=== PATIENT | male | born 1980 | race Caucasian/White ===

== ENCOUNTER 2021-10-02 16:59 | Emergency (ER) | payer SELFPAY ==
[2021-10-02] MEDS ORDERED: Lidocaine 1% with EPINEPHrine 1:100,000 10 ML MDV INJECT ONE (17:05)
[2021-10-02] MEDS ORDERED: Diphtheria,Pertussis(Acell),Tetanus Vaccine 0.5 ML Syringe IM ONE (17:06)
== END 2021-10-02 18:35 | disposition home or self-care (01) ==
LOC: MW.ED 16:59
DX: S01.01XA Laceration without foreign body of scalp, initial encounter (principal); Z88.8 Allergy status to other drugs, medicaments and biological substances; Z23 Encounter for immunization; W26.8XXA Contact with other sharp object(s), not elsewhere classified, initial encounter
CPT/HCPCS: 12002; 70450; 70450-26; 72125; 72125-26; 90471; 90715; 99283-25

== ENCOUNTER 2023-08-17 20:54 | Observation (INO) | payer BC ==
[2023-08-17 21:11] LABS: BASOPHILS ABSOLUTE AUTO 0.11 K/uL (0.00-0.20); BASOPHILS PERCENT AUTO 1.6 % (0.0-1.0); EOSINOPHILS ABSOLUTE AUTO 0.22 K/uL (0.00-0.45); EOSINOPHILS PERCENT AUTO 3.3 % (0.0-6.0); HEMATOCRIT 39.1 % (42.0-52.0); HEMOGLOBIN 13.7 g/dL (14.0-18.0); IMMATURE GRAN ABSOLUTE AUTO 0.03 K/uL (0.00-0.05); IMMATURE GRAN PERCENT AUTO 0.4 % (0.0-0.4); LYMPHOCYTES ABSOLUTE AUTO 1.57 K/uL (1.00-4.80); LYMPHOCYTES PERCENT AUTO 23.2 % (24.0-44.0); MEAN CORPUSCULAR VOLUME 91.4 fL (83.0-99.0); MONOCYTES ABSOLUTE AUTO 0.91 K/uL (0.00-0.80); MONOCYTES PERCENT AUTO 13.5 % (0.0-8.0); NEUTROPHILS ABSOLUTE AUTO 3.92 K/uL (1.80-7.70); PLATELET COUNT,PLT 449 K/uL (150-400); RED BLOOD CELL COUNT 4.28 M/uL (4.52-5.90); WHITE BLOOD CELL COUNT,WBC 6.76 K/uL (3.9-11.3)
[2023-08-17] MEDS: Sodium Chloride 0.9% 1,000 ML IV STA (21:12)
[2023-08-17] MEDS: Sodium Chloride 0.9% 2.5 ML Syringe FLUSH PRN (21:12)
[2023-08-17] MEDS: Sodium Chloride 0.9% 10 ML Syringe FLUSH PRN (21:12)
[2023-08-17 21:37] LABS: D-DIMER QUANTITATIVE 0.2 mg/L FEU (0.00-0.50); INR 0.94 (0.86-1.11)
[2023-08-17 21:43] LABS: A/G RATIO 1.1 (0.9-1.6); ALBUMIN 3.9 g/dL (3.4-5.0); CALCIUM 9.4 mg/dL (8.5-10.1); CARBON DIOXIDE,CO2 24.2 mmol/L (21.0-32.0); CREATININE 1.5 mg/dL (0.8-1.3); EST CRCL DRUG DOSING (CG) 68.98 mL/min; POTASSIUM,K 3.7 mmol/L (3.5-5.1); PROTEIN TOTAL,TP 7.5 g/dL (6.4-8.2)
[2023-08-17] MEDS: Metoprolol Tartrate 5 MG in Sodium Chloride 0.9% 50 ML IV ONE (22:27)
[2023-08-17] MEDS: Metoprolol Tartrate 5 MG/5 ML SDV IVPUSH STA (22:29)
[2023-08-17 23:17] LABS: MAGNESIUM 1.8 mg/dL (1.8-2.4)
[2023-08-18] MEDS: Metoprolol Succinate 25 MG Tab.ER PO ONE (00:09)
[2023-08-18] MEDS: Apixaban 5 MG Tab PO ONE (01:54)
[2023-08-18 06:10] LABS: HEMOGLOBIN 13.3 g/dL (14.0-18.0); MEAN CORPUSCULAR HGB CONC 34.1 g/dL (32.0-36.0); MEAN PLATELET VOLUME 9.1 fL (9.4-12.4); PLATELET COUNT,PLT 412 K/uL (150-400); RED BLOOD CELL COUNT 4.15 M/uL (4.52-5.90); WHITE BLOOD CELL COUNT,WBC 6.94 K/uL (3.9-11.3)
[2023-08-18 06:28] LABS: BLOOD UREA NITROGEN,BUN 8 mg/dL (7.0-18.0); CALCIUM 8.4 mg/dL (8.5-10.1); CARBON DIOXIDE,CO2 25.7 mmol/L (21.0-32.0); CHLORIDE,CL 105 mmol/L (98-107); CREATININE 1.3 mg/dL (0.8-1.3); ESTIMATED GFR 69 mL/min (>60); GLUCOSE RANDOM 100 mg/dL (74-106); POTASSIUM,K 4.1 mmol/L (3.5-5.1); SODIUM,NA 141 mmol/L (136-148)
[2023-08-18] MEDS: Metoprolol Tartrate 25 MG Tab PO SCH (08:49)
[2023-08-18] MEDS ORDERED: Apixaban 5 MG Tab PO SCH (21:00)
== END 2023-08-18 11:10 | disposition home or self-care (01) ==
LOC: MW.ED 20:54 → MW.ICU 08-18 00:44
PROVIDERS: ADMIT Internal Medicine; ATTEND Internal Medicine
DX: I48.91 Unspecified atrial fibrillation (principal); F17.290 Nicotine dependence, other tobacco product, uncomplicated; Z79.01 Long term (current) use of anticoagulants; Z79.899 Other long term (current) drug therapy; Z88.8 Allergy status to other drugs, medicaments and biological substances
CPT/HCPCS: 36415; 71045; 80048; 80053; 83735; 84484; 85025; 85027; 85379; 85610; 93005; 93306; 96374; 99285; A9270; J3490; J7030; 93010; 99235; 99284; G0378

== ENCOUNTER 2024-06-13 11:24 | Inpatient (IN) | payer BC ==
[2024-06-13 12:15] LABS: BASOPHILS ABSOLUTE AUTO 0.05 K/uL (0.00-0.20); BASOPHILS PERCENT AUTO 0.4 % (0.0-1.0); EOSINOPHILS ABSOLUTE AUTO 0.19 K/uL (0.00-0.45); EOSINOPHILS PERCENT AUTO 1.6 % (0.0-6.0); HEMATOCRIT 41.9 % (42.0-52.0); HEMOGLOBIN 14.4 g/dL (14.0-18.0); IMMATURE GRAN ABSOLUTE AUTO 0.06 K/uL (0.00-0.05); IMMATURE GRAN PERCENT AUTO 0.5 % (0.0-0.4); LYMPHOCYTES ABSOLUTE AUTO 0.71 K/uL (1.00-4.80); LYMPHOCYTES PERCENT AUTO 5.9 % (24.0-44.0); MEAN CORPUSCULAR HEMOGLOBIN 31.2 pg (28.0-32.0); MEAN CORPUSCULAR HGB CONC 34.4 g/dL (32.0-36.0); MEAN CORPUSCULAR VOLUME 90.9 fL (83.0-99.0); MONOCYTES ABSOLUTE AUTO 1.25 K/uL (0.00-0.80); MONOCYTES PERCENT AUTO 10.3 % (0.0-8.0); NEUTROPHILS ABSOLUTE AUTO 9.86 K/uL (1.80-7.70); NEUTROPHILS PERCENT AUTO 81.3 % (41.0-71.0); PLATELET COUNT,PLT 362 K/uL (150-400); RED BLOOD CELL COUNT 4.61 M/uL (4.52-5.90); WHITE BLOOD CELL COUNT,WBC 12.12 K/uL (3.9-11.3)
[2024-06-13 12:36] LABS: A/G RATIO 0.8 (0.9-1.6); ALBUMIN 3.3 g/dL (3.4-5.0); BILIRUBIN TOTAL 1.5 mg/dL (0.2-1.0); CARBON DIOXIDE,CO2 27.2 mmol/L (21.0-32.0); CREATININE 1.2 mg/dL (0.8-1.3); EST CRCL DRUG DOSING (CG) 85.32 mL/min; POTASSIUM,K 3.7 mmol/L (3.5-5.1); PROTEIN TOTAL,TP 7.6 g/dL (6.4-8.2)
[2024-06-13] MEDS ORDERED: Sodium Chloride 0.9% 2.5 ML Syringe FLUSH PRN (12:56)
[2024-06-13] MEDS ORDERED: Sodium Chloride 0.9% 10 ML Syringe FLUSH PRN (12:56)
[2024-06-13] MEDS: Sodium Chloride 0.9% 1,000 ML IV ONE ×2 (13:10→16:03)
[2024-06-13] MEDS: Ondansetron 4 MG/2 ML SDV IVPUSH ONE (13:10)
[2024-06-13] MEDS: fentaNYL 50 MCG/ML SDV IVPUSH ONE ×2 (13:23→16:04)
[2024-06-13 13:24] LABS: COLOR,URINE ORANGE; GLUCOSE,URINE NEGATIVE (NEGATIVE); KETONES,URINE TRACE mg/dL (NEGATIVE); LEUKOCYTE ESTERASE,URINE NEGATIVE (NEGATIVE); NITRITE,URINE POSITIVE (NEGATIVE); OCCULT BLOOD,URINE LARGE (NEGATIVE); PROTEIN,URINE >=300 mg/dL (NEGATIVE)
[2024-06-13 13:25] LABS: APPEARANCE,URINE SLT CLOUDY; BILIRUBIN,URINE MODERATE (NEGATIVE)
[2024-06-13 13:44] LABS: BACTERIA,URINE 1+ (NEGATIVE); EPITHELIAL CELLS,URINE RARE (NONE-FEW); MUCUS,URINE LIGHT (NONE-MOD)
[2024-06-13] MEDS: Iopamidol 755 MG/ML 500 ML Multipack Bottle IVPUSH STA (14:05)
[2024-06-13] MEDS: Morphine 4 MG/ML Syringe IVPUSH ONE (14:31)
[2024-06-13] MEDS: Morphine 4 MG/ML Syringe IM ONE (14:32)
[2024-06-13] MEDS ORDERED: Ondansetron 4 MG/2 ML SDV IVPUSH PRN (15:27)
[2024-06-13] MEDS ORDERED: Morphine 2 MG/ML SYRINGE IVPUSH PRN (15:27)
[2024-06-13] MEDS: cefTRIAXone 1 GM in Sodium Chloride 0.9% 50 ML IV SCH (16:03)
[2024-06-13] MEDS: Pantoprazole 40 MG in Sodium Chloride 0.9% 10 ML IVPUSH SCH (16:04)
[2024-06-13] MEDS: Thiamine 200 MG/2 ML MDV IVPUSH SCH (17:23)
[2024-06-13] MEDS: Folic Acid 1 MG/0.2 ML UD Syringe IV SCH (17:23)
[2024-06-13] MEDS: Sodium Chloride 0.9% 1,000 ML IV SCH (18:49)
[2024-06-13] MEDS: fentaNYL 50 MCG/ML SDV IVPUSH PRN (20:56)
[2024-06-14 05:57] LABS: BASOPHILS ABSOLUTE AUTO 0.05 K/uL (0.00-0.20); BASOPHILS PERCENT AUTO 0.5 % (0.0-1.0); EOSINOPHILS ABSOLUTE AUTO 0.24 K/uL (0.00-0.45); EOSINOPHILS PERCENT AUTO 2.4 % (0.0-6.0); HEMOGLOBIN 12.1 g/dL (14.0-18.0); IMMATURE GRAN ABSOLUTE AUTO 0.06 K/uL (0.00-0.05); IMMATURE GRAN PERCENT AUTO 0.6 % (0.0-0.4); LYMPHOCYTES ABSOLUTE AUTO 0.58 K/uL (1.00-4.80); LYMPHOCYTES PERCENT AUTO 5.9 % (24.0-44.0); MEAN CORPUSCULAR HEMOGLOBIN 31.3 pg (28.0-32.0); MEAN CORPUSCULAR HGB CONC 33.6 g/dL (32.0-36.0); MEAN CORPUSCULAR VOLUME 93.3 fL (83.0-99.0); MEAN PLATELET VOLUME 9.2 fL (9.4-12.4); MONOCYTES ABSOLUTE AUTO 1.19 K/uL (0.00-0.80); NEUTROPHILS ABSOLUTE AUTO 7.77 K/uL (1.80-7.70); NEUTROPHILS PERCENT AUTO 78.6 % (41.0-71.0); PLATELET COUNT,PLT 397 K/uL (150-400); RED BLOOD CELL COUNT 3.86 M/uL (4.52-5.90); WHITE BLOOD CELL COUNT,WBC 9.89 K/uL (3.9-11.3)
[2024-06-14 06:23] LABS: ALBUMIN 2.6 g/dL (3.4-5.0); BILIRUBIN TOTAL 0.8 mg/dL (0.2-1.0); CARBON DIOXIDE,CO2 26.2 mmol/L (21.0-32.0); CREATININE 1.2 mg/dL (0.8-1.3); EST CRCL DRUG DOSING (CG) 85.32 mL/min; MAGNESIUM 2.6 mg/dL (1.8-2.4); PHOSPHORUS 2.8 mg/dL (2.6-4.7); POTASSIUM,K 3.8 mmol/L (3.5-5.1); PROTEIN TOTAL,TP 6.6 g/dL (6.4-8.2)
[2024-06-14 06:25] LABS: A/G RATIO 0.7 (0.9-1.6)
[2024-06-14] MEDS ORDERED: Sodium Chloride 0.9% 10 ML Syringe FLUSH PRN (08:04)
[2024-06-14] MEDS ORDERED: Sodium Chloride 0.9% 2.5 ML Syringe FLUSH PRN (08:04)
[2024-06-15 05:25] LABS: BASOPHILS ABSOLUTE AUTO 0.06 K/uL (0.00-0.20); BASOPHILS PERCENT AUTO 0.6 % (0.0-1.0); EOSINOPHILS ABSOLUTE AUTO 0.28 K/uL (0.00-0.45); EOSINOPHILS PERCENT AUTO 2.9 % (0.0-6.0); HEMATOCRIT 33.5 % (42.0-52.0); HEMOGLOBIN 11.2 g/dL (14.0-18.0); IMMATURE GRAN ABSOLUTE AUTO 0.06 K/uL (0.00-0.05); IMMATURE GRAN PERCENT AUTO 0.6 % (0.0-0.4); LYMPHOCYTES ABSOLUTE AUTO 0.56 K/uL (1.00-4.80); LYMPHOCYTES PERCENT AUTO 5.8 % (24.0-44.0); MEAN CORPUSCULAR HEMOGLOBIN 31.1 pg (28.0-32.0); MEAN CORPUSCULAR HGB CONC 33.4 g/dL (32.0-36.0); MEAN CORPUSCULAR VOLUME 93.1 fL (83.0-99.0); MEAN PLATELET VOLUME 9.1 fL (9.4-12.4); MONOCYTES ABSOLUTE AUTO 1.21 K/uL (0.00-0.80); MONOCYTES PERCENT AUTO 12.4 % (0.0-8.0); NEUTROPHILS ABSOLUTE AUTO 7.55 K/uL (1.80-7.70); NEUTROPHILS PERCENT AUTO 77.7 % (41.0-71.0); PLATELET COUNT,PLT 419 K/uL (150-400); WHITE BLOOD CELL COUNT,WBC 9.72 K/uL (3.9-11.3)
[2024-06-15 05:54] LABS: A/G RATIO 0.6 (0.9-1.6); ALBUMIN 2.3 g/dL (3.4-5.0); BILIRUBIN TOTAL 0.4 mg/dL (0.2-1.0); CARBON DIOXIDE,CO2 25.2 mmol/L (21.0-32.0); EST CRCL DRUG DOSING (CG) 102.39 mL/min; POTASSIUM,K 3.5 mmol/L (3.5-5.1); PROTEIN TOTAL,TP 5.9 g/dL (6.4-8.2)
[2024-06-15] MEDS ORDERED: dexmedeTOMIDine HCl 200 MCG/2 ML SDV ONE (10:46)
[2024-06-15] MEDS ORDERED: fentaNYL 100 MCG/2 ML SDV ONE (10:46)
[2024-06-15] MEDS ORDERED: Propofol 200 MG/20 ML SDV ONE ×2 (10:46→13:17)
[2024-06-15] MEDS ORDERED: Rocuronium Bromide 50 MG/5 ML Syringe ONE ×2 (10:54→12:31)
[2024-06-15] MEDS ORDERED: Bupivacaine 0.5% 30 ML SDV ONE (10:57)
[2024-06-15] MEDS ORDERED: Bupivacaine 0.25% 30 ML SDV ONE (10:58)
[2024-06-15] MEDS ORDERED: Ropivacaine 0.5% 5 MG/ML 30 ML SDV ONE (10:58)
[2024-06-15] MEDS ORDERED: Lidocaine 2% 11 ML Jelly Filled Syringe ONE ×2 (11:47→12:37)
[2024-06-15] MEDS ORDERED: ceFAZolin 2 GM Vial ONE (12:02)
[2024-06-15] MEDS ORDERED: Morphine 10 MG/ML SDV ONE (12:03)
[2024-06-15] MEDS ORDERED: Sugammadex Sodium 200 MG/2 ML VIAL IV ONE (12:51)
[2024-06-15] MEDS ORDERED: Ketorolac 30 MG/ML SDV ONE (13:09)
[2024-06-15] MEDS ORDERED: Morphine 2 MG/ML SYRINGE IVPUSH PRN (13:51)
[2024-06-15] MEDS ORDERED: Naloxone 0.4 MG/ML SDV IVPUSH PRN (13:51)
[2024-06-15] MEDS ORDERED: Ondansetron 4 MG/2 ML SDV IVPUSH PRN (13:51)
[2024-06-15] MEDS ORDERED: fentaNYL 50 MCG/ML SDV IVPUSH PRN (13:51)
[2024-06-15] MEDS ORDERED: Albuterol 0.083% 2.5 MG/3 ML Neb Soln NEB PRN (13:51)
[2024-06-15] MEDS ORDERED: Phenylephrine HCl In 0.9% NaCl 1 MG/10 ML Syringe IVPUSH PRN (13:51)
[2024-06-15] MEDS ORDERED: HYDROmorphone 1 MG/ML Syringe IVPUSH PRN (13:51)
[2024-06-15] MEDS ORDERED: Metoclopramide 10 MG/2 ML SDV IVPUSH PRN (13:51)
== END 2024-06-15 20:45 | disposition home or self-care (01) | DRG 263 ==
LOC: MW.ED 11:24 → MW.MS 15:27
PROVIDERS: ADMIT Internal Medicine; ATTEND Internal Medicine
PROC: 0FT44ZZ Resection of Gallbladder, Percutaneous Endoscopic Approach (ICD-10-PCS; principal; 2024-06-13)
PROC: BF52200 Other Imaging of Gallbladder using Fluorescing Agent, Indocyanine Green Dye, Intraoperative (ICD-10-PCS; 2024-06-13)
DX: K85.20 Alcohol induced acute pancreatitis without necrosis or infection (principal); Y90.1 Blood alcohol level of 20-39 mg/100 ml; F15.90 Other stimulant use, unspecified, uncomplicated; I48.91 Unspecified atrial fibrillation; K80.20 Calculus of gallbladder without cholecystitis without obstruction; Z88.8 Allergy status to other drugs, medicaments and biological substances; Z98.890 Other specified postprocedural states; Z87.891 Personal history of nicotine dependence; N39.0 Urinary tract infection, site not specified
CPT/HCPCS: 36415; 74177; 74177-26; 74181; 74181-26; 76705; 76705-26; 80053; 80307; 81001; 83690; 83735; 84100; 85025; 87086; 93005; A9270-GY; J0665; J0690; J0696; J1885; J2272; J2405; J2470; J2704; J2795; J3010; J3411; J3490; J7030; Q9967

== ENCOUNTER 2024-12-24 10:38 | Inpatient (IN) | payer BC ==
[2024-12-24] MEDS ORDERED: Sodium Chloride 0.9% 2.5 ML Syringe FLUSH PRN ×2 (10:53→12:37)
[2024-12-24] MEDS ORDERED: Sodium Chloride 0.9% 10 ML Syringe FLUSH PRN ×2 (10:53→12:37)
[2024-12-24 11:07] LABS: BASOPHILS ABSOLUTE AUTO 0.05 K/uL (0.00-0.20); BASOPHILS PERCENT AUTO 0.5 % (0.0-1.0); EOSINOPHILS ABSOLUTE AUTO 0.24 K/uL (0.00-0.45); EOSINOPHILS PERCENT AUTO 2.6 % (0.0-6.0); IMMATURE GRAN ABSOLUTE AUTO 0.04 K/uL (0.00-0.05); IMMATURE GRAN PERCENT AUTO 0.4 % (0.0-0.4); LYMPHOCYTES ABSOLUTE AUTO 0.99 K/uL (1.00-4.80); LYMPHOCYTES PERCENT AUTO 10.6 % (24.0-44.0); MEAN PLATELET VOLUME 8.9 fL (9.4-12.4); MONOCYTES ABSOLUTE AUTO 0.87 K/uL (0.00-0.80); MONOCYTES PERCENT AUTO 9.3 % (0.0-8.0); NEUTROPHILS ABSOLUTE AUTO 7.14 K/uL (1.80-7.70); NEUTROPHILS PERCENT AUTO 76.6 % (41.0-71.0); NRBC ABSOLUTE 0.00 K/uL (0.00-0.02); NRBC PERCENT 0.0 /100WBC (0.0-0.2); PLATELET COUNT,PLT 430 K/uL (150-400); RED BLOOD CELL COUNT 4.47 M/uL (4.52-5.90); WHITE BLOOD CELL COUNT,WBC 9.33 K/uL (3.9-11.3)
[2024-12-24] MEDS: Ketorolac 30 MG/ML SDV IVPUSH ONE (11:08)
[2024-12-24] MEDS: Ondansetron 4 MG/2 ML SDV IVPUSH ONE (11:08)
[2024-12-24 11:44] LABS: A/G RATIO 1.1 (0.9-1.6); ALANINE AMINOTRANSFERASE,ALT 31.0 IU/L (14-63); ASPARTATE AMNIOTRANSFERASE,AST 25.0 IU/L (15-37); BILIRUBIN TOTAL 0.8 mg/dL (0.2-1.0); BLOOD UREA NITROGEN,BUN 10.0 mg/dL (7.0-18.0); CARBON DIOXIDE,CO2 27.0 mmol/L (21.0-32.0); CHLORIDE,CL 101.0 mmol/L (98-107); CREATININE 1.2 mg/dL (0.8-1.3); EST CRCL DRUG DOSING (CG) 85.32 mL/min; GLUCOSE RANDOM 115.0 mg/dL (74-106); POTASSIUM,K 3.8 mmol/L (3.5-5.1); PROTEIN TOTAL,TP 7.4 g/dL (6.4-8.2); SODIUM,NA 139.0 mmol/L (136-148)
[2024-12-24 11:46] LABS: ESTIMATED GFR 76.0 mL/min (>60)
[2024-12-24] MEDS ORDERED: Ondansetron 4 MG/2 ML SDV IVPUSH PRN (12:37)
[2024-12-24] MEDS ORDERED: LORazepam 2 MG/ML SDV IVPUSH PRN (12:41)
[2024-12-24] MEDS: Pantoprazole 80 MG in Sodium Chloride 0.9% 20 ML IVPUSH ONE (12:42)
[2024-12-24] MEDS: Thiamine 200 MG/2 ML MDV IVPUSH SCH (13:35)
[2024-12-24] MEDS: Folic Acid 1 MG/0.2 ML UD Syringe SUBCUT SCH (13:35)
[2024-12-24 20:58] LABS: APPEARANCE,URINE CLEAR; GLUCOSE,URINE NEGATIVE (NEGATIVE); OCCULT BLOOD,URINE MODERATE (NEGATIVE)
[2024-12-24 21:05] LABS: EPITHELIAL CELLS,URINE OCCASIONAL (NONE-FEW)
[2024-12-25 05:36] LABS: BASOPHILS ABSOLUTE AUTO 0.04 K/uL (0.00-0.20); BASOPHILS PERCENT AUTO 0.5 % (0.0-1.0); EOSINOPHILS ABSOLUTE AUTO 0.18 K/uL (0.00-0.45); EOSINOPHILS PERCENT AUTO 2.1 % (0.0-6.0); IMMATURE GRAN ABSOLUTE AUTO 0.03 K/uL (0.00-0.05); IMMATURE GRAN PERCENT AUTO 0.3 % (0.0-0.4); LYMPHOCYTES ABSOLUTE AUTO 0.68 K/uL (1.00-4.80); LYMPHOCYTES PERCENT AUTO 7.9 % (24.0-44.0); MEAN PLATELET VOLUME 9.1 fL (9.4-12.4); MONOCYTES ABSOLUTE AUTO 0.97 K/uL (0.00-0.80); MONOCYTES PERCENT AUTO 11.2 % (0.0-8.0); NEUTROPHILS ABSOLUTE AUTO 6.75 K/uL (1.80-7.70); NEUTROPHILS PERCENT AUTO 78.0 % (41.0-71.0); NRBC ABSOLUTE 0.00 K/uL (0.00-0.02); NRBC PERCENT 0.0 /100WBC (0.0-0.2); PLATELET COUNT,PLT 404 K/uL (150-400); RED BLOOD CELL COUNT 4.05 M/uL (4.52-5.90); WHITE BLOOD CELL COUNT,WBC 8.65 K/uL (3.9-11.3)
[2024-12-25 06:10] LABS: A/G RATIO 1.0 (0.9-1.6); ALANINE AMINOTRANSFERASE,ALT 19.0 IU/L (14-63); ASPARTATE AMNIOTRANSFERASE,AST 15.0 IU/L (15-37); BILIRUBIN TOTAL 0.8 mg/dL (0.2-1.0); BLOOD UREA NITROGEN,BUN 5.0 mg/dL (7.0-18.0); CARBON DIOXIDE,CO2 27.2 mmol/L (21.0-32.0); CHLORIDE,CL 105.0 mmol/L (98-107); CREATININE 1.1 mg/dL (0.8-1.3); EST CRCL DRUG DOSING (CG) 93.08 mL/min; GLUCOSE RANDOM 114.0 mg/dL (74-106); PHOSPHORUS 3.0 mg/dL (2.6-4.7); POTASSIUM,K 3.8 mmol/L (3.5-5.1); PROTEIN TOTAL,TP 6.1 g/dL (6.4-8.2); SODIUM,NA 140.0 mmol/L (136-148)
[2024-12-25 06:46] LABS: ESTIMATED GFR 84.0 mL/min (>60)
[2024-12-25] MEDS: Magnesium Sulfate 2 GM/50 mL 2 GM in Premix Bag 1 BAG IV ONE (09:23)
[2024-12-26 06:03] LABS: BASOPHILS ABSOLUTE AUTO 0.04 K/uL (0.00-0.20); BASOPHILS PERCENT AUTO 0.5 % (0.0-1.0); EOSINOPHILS ABSOLUTE AUTO 0.27 K/uL (0.00-0.45); EOSINOPHILS PERCENT AUTO 3.1 % (0.0-6.0); IMMATURE GRAN ABSOLUTE AUTO 0.04 K/uL (0.00-0.05); IMMATURE GRAN PERCENT AUTO 0.5 % (0.0-0.4); LYMPHOCYTES ABSOLUTE AUTO 1.07 K/uL (1.00-4.80); LYMPHOCYTES PERCENT AUTO 12.3 % (24.0-44.0); MEAN PLATELET VOLUME 9.0 fL (9.4-12.4); MONOCYTES ABSOLUTE AUTO 1.31 K/uL (0.00-0.80); MONOCYTES PERCENT AUTO 15.1 % (0.0-8.0); NEUTROPHILS ABSOLUTE AUTO 5.94 K/uL (1.80-7.70); NEUTROPHILS PERCENT AUTO 68.5 % (41.0-71.0); NRBC ABSOLUTE 0.00 K/uL (0.00-0.02); NRBC PERCENT 0.0 /100WBC (0.0-0.2); PLATELET COUNT,PLT 353 K/uL (150-400); RED BLOOD CELL COUNT 3.41 M/uL (4.52-5.90); WHITE BLOOD CELL COUNT,WBC 8.67 K/uL (3.9-11.3)
[2024-12-26 07:11] LABS: A/G RATIO 0.8 (0.9-1.6); ALANINE AMINOTRANSFERASE,ALT 17.0 IU/L (14-63); ASPARTATE AMNIOTRANSFERASE,AST 12.0 IU/L (15-37); BILIRUBIN TOTAL 0.8 mg/dL (0.2-1.0); BLOOD UREA NITROGEN,BUN 5.0 mg/dL (7.0-18.0); CARBON DIOXIDE,CO2 25.5 mmol/L (21.0-32.0); CHLORIDE,CL 104.0 mmol/L (98-107); CREATININE 1.1 mg/dL (0.8-1.3); EST CRCL DRUG DOSING (CG) 93.08 mL/min; GLUCOSE RANDOM 97.0 mg/dL (74-106); PHOSPHORUS 3.1 mg/dL (2.6-4.7); POTASSIUM,K 3.6 mmol/L (3.5-5.1); PROTEIN TOTAL,TP 6.0 g/dL (6.4-8.2); SODIUM,NA 138.0 mmol/L (136-148)
[2024-12-26 07:14] LABS: ESTIMATED GFR 84.0 mL/min (>60)
== END 2024-12-26 12:50 | disposition home or self-care (01) | DRG 282 ==
LOC: MW.ED 10:38 → MW.MS 13:56
PROVIDERS: ADMIT Internal Medicine; ATTEND Internal Medicine
DX: K85.20 Alcohol induced acute pancreatitis without necrosis or infection (principal); I48.91 Unspecified atrial fibrillation; E86.0 Dehydration; F10.10 Alcohol abuse, uncomplicated; Z88.8 Allergy status to other drugs, medicaments and biological substances; Z98.890 Other specified postprocedural states
CPT/HCPCS: 36415; 80053; 81001; 83690; 83735; 84100; 85025; 96361; 96374; 96375; 99222; 99232; 99238; 99284-25; 99285; A9270-GY; J1885; J2270; J2405; J2470; J3411; J3475; J3490; J7030